=== PATIENT | female | born 2000 | race Caucasian/White ===

== ENCOUNTER → 2020-06-27 08:43 | Outpatient (CLI) | payer OTHER, SELFPAY ==
[2020-06-27 10:24] LABS: Estradiol 42.4 pg/mL; Follicle Stimulating Hormone 4.1 mIU/mL; Luteinizing Hormone 3.7 mIU/mL
[2020-06-28 20:19] LABS: Testosterone Free 1.6 pg/mL (0.0-4.2)
[2020-06-30 12:32] LABS: 17-Hydroxyprogesterone 40 ng/dL (.)
== END ==
PROVIDERS: Visit Provider Student in an Organized Health Care Education/Training Program
DX: N92.6 Irregular menstruation, unspecified (principal)
CPT/HCPCS: 36415; 82627; 82670; 83001; 83002; 83498; 84402; 82626

== ENCOUNTER → 2020-07-13 14:52 | Outpatient (CLI) | payer OTHER, SELFPAY ==
[2020-07-13 17:37] LABS: Progesterone Level 0.64 ng/mL (See Comment)
[2020-07-13 17:42] LABS: Hemoglobin A1c 5.4 % (3.8-5.6)
== END ==
PROVIDERS: Visit Provider Student in an Organized Health Care Education/Training Program
DX: N92.6 Irregular menstruation, unspecified (principal)
CPT/HCPCS: 36415; 83036; 84144